=== PATIENT | female | born 1990 | race American Indian/Alaskan Native ===

== ENCOUNTER 2019-11-02 07:41 | Emergency (ER) | payer SELFPAY ==
[2019-11-02 07:47] VITALS: BP 165/100
--- NOTE | 2019-11-02 09:03 | Emergency Department Report ---
ED ENT HPI - General Chief complaint: Dental/Oral Stated complaint: ABSCESS Time Seen by Provider: 11/02/19 08:59 Source: patient Mode of arrival: Ambulatory Limitations: No Limitations - History of Present Illness Initial comments: 28-year-old -[place] female presents to the emergency room complaining of a 2-day history of tooth pain. Patient states that last night she woke up this morning with left-sided facial swelling. Patient is aware that she has bad tooth. She denies any injury denies any fever chills, no nausea or vomiting. She denies any drainage from her mouth. She denies any headache change in vision difficulty moving her eyes. She has no known drug allergies currently takes no medications on a daily basis and has no past medical history MD complaint: tooth pain - Related Data Previous Rx's Medication Instructions Recorded Last Taken Type Clindamycin [Clindamycin CAP] 300 mg PO Q8H 10 Days #30 cap 11/02/19 Unknown Rx Ibuprofen [Motrin 800 MG tab] 800 mg PO Q8HR PRN #30 tablet 11/02/19 Unknown Rx Allergies Allergy/AdvReac Type Severity Reaction Status Date / Time No Known Allergies Allergy Unverified 11/02/19 07:45 ED Dental HPI - General Chief complaint: Dental/Oral Stated complaint: ABSCESS Time Seen by Provider: 11/02/19 08:59 Source: patient Mode of arrival: Ambulatory Limitations: No Limitations - Related Data Previous Rx's Medication Instructions Recorded Last Taken Type Clindamycin [Clindamycin CAP] 300 mg PO Q8H 10 Days #30 cap 11/02/19 Unknown Rx Ibuprofen [Motrin 800 MG tab] 800 mg PO Q8HR PRN #30 tablet 11/02/19 Unknown Rx Allergies Allergy/AdvReac Type Severity Reaction Status Date / Time No Known Allergies Allergy Unverified 11/02/19 07:45 ED Review of Systems ROS: Stated complaint: ABSCESS Other details as noted in HPI ED Past Medical Hx - Past Medical History Previous Medical History?: No - Surgical History Past Surgical History?: No - Social History Smoking Status: Never Smoker Substance Use Type: None - Medications Home Medications: Home Medications Medication Instructions Recorded Confirmed Last Taken Type Clindamycin [Clindamycin CAP] 300 mg PO Q8H 10 Days #30 cap 11/02/19 Unknown Rx Ibuprofen [Motrin 800 MG tab] 800 mg PO Q8HR PRN #30 tablet 11/02/19 Unknown Rx ED Physical Exam - General Limitations: No Limitations General appearance: alert, in no apparent distress - Head Head exam: Present: atraumatic, normocephalic - Eye Eye exam: Present: PERRL, EOMI, periorbital swelling. Absent: periorbital tenderness Pupils: Present: other (Left side of face is edematous) - ENT ENT exam: Present: mucous membranes moist - Expanded ENT Exam Expanded Teeth exam: Present: dental caries, dental tenderness # (13), gingival enlargement Throat exam: Positive: normal inspection - Neck Neck exam: Present: normal inspection, full ROM. Absent: lymphadenopathy - Neurological Exam Neurological exam: Present: alert, oriented X3, normal gait - Psychiatric Psychiatric exam: Present: normal affect, normal mood - Skin Skin exam: Present: warm, dry, intact, normal color. Absent: rash ED Course Vital Signs 11/02/19 07:46 Temperature 98.6 F Pulse Rate 84 Respiratory 18 Rate Blood Pressure 165/100 [Right] O2 Sat by Pulse 99 Oximetry ED Medical Decision Making - Medical Decision Making 28-year-old -[place] female presents to the emergency room complaining of a 2-day history of tooth pain. Patient states that last night she woke up this morning with left-sided facial swelling. Patient is aware that she has bad tooth. She denies any injury denies any fever chills, no nausea or vomiting. She denies any drainage from her mouth. She denies any headache change in vision difficulty moving her eyes. She has no known drug allergies currently takes no medications on a daily basis and has no past medical history. Patient does have swelling to the left side of face up to her left eye she has full EMOI intact no tenderness no restriction of her vision or eye movement. I feel that this is swelling is secondary to a dental abscess not a. periorbital cellulitis. Patient is to complete clindamycin as prescribed take pain medication as needed very important for you to follow-up with a dentist. Return back to the emergency room if anything worsens or new complaints. Critical care attestation.: If time is entered above; I have spent that time in minutes in the direct care of this critically ill patient, excluding procedure time. ED Disposition Clinical Impression: Dental abscess, Dental caries Disposition: TO HOME OR SELFCARE Is pt being admited?: No Does the pt Need Aspirin: No Condition: Stable Instructions: Dental Abscess (ED) Additional Instructions: Complete antibiotics as prescribed. Take pain medication as needed. Please increase your fluid intake while taking ibuprofen and be sure to take with food. Follow-up with a dentist is very important. Prescriptions: Clindamycin [Clindamycin CAP] 300 mg PO Q8H 10 Days #30 cap Ibuprofen [Motrin 800 MG tab] 800 mg PO Q8HR PRN #30 tablet PRN Reason: Pain , Severe (7-10) Referrals: CHEN NICHOLS MD [Primary Care Provider] - 3-5 Days [facility] [Outside] - 3-5 Days [facility] [Outside] - 3-5 Days [facility] [Provider Group] - 3-5 Days Forms: Work/School Release Form(ED)
== END 2019-11-02 09:11 | disposition home or self-care (01) ==
LOC: ED 07:41
DX: K04.7 Periapical abscess without sinus (principal); K02.9 Dental caries, unspecified; Z79.899 Other long term (current) drug therapy
CPT/HCPCS: 99282